=== PATIENT | female | born 1995 | race Two or more races ===

== ENCOUNTER 2016-08-14 01:34 | Emergency (ER) | payer OTHER ==
--- NOTE | ~2016-08-14 | ER ---
PATIENT'S NAME: MELODY EAGLE [facility] AGE: 20 Y [address] ROOM: [place] [address] LOCATION: [facility] ADMIT DATE: 08/14/2016 ER/Outpatient Report DISCHARGE DATE: 08/14/2016 FAMILY PHYSICIAN: Rommel Ng MD ATTENDING PHYSICIAN: Vipul Sal CHIEF COMPLAINT: Abdominal pain. HISTORY OF PRESENT ILLNESS: The patient states that throughout the day, she has had worsening of her right upper abdominal pain. She has had similar presentations in the past. She has not really taken anything to try to make this better. She has had some nausea and vomiting along with this and possibly some diarrhea. This particular issue has been going on for several days up to a week, but has gotten significantly worse since night. The pain is definitely worse after eating. She does have a history of abdominal surgery with a gastric sleeve. She denies any other acute findings. PAST MEDICAL HISTORY: Documented on the record and reviewed by me. SOCIAL HISTORY: Documented on the record and reviewed by me. MEDICATIONS: Documented on the record and reviewed by me. ALLERGIES: DOCUMENTED ON THE RECORD AND REVIEWED BY ME. REVIEW OF SYSTEMS: All systems reviewed and negative except as noted in the HPI. PHYSICAL EXAMINATION: VITAL SIGNS: Blood pressure 122/78, pulse 117, respiratory rate is 16, temperature is 98.5, and SpO2 is 93% on room air. Pain is rated at 8/10. GENERAL: An age appropriate female, laughing, and resting comfortably on the exam table. NEUROLOGIC: Awake and alert. GCS 15. No focal deficits. No asymmetry on exam. HEENT: Normocephalic and atraumatic. Eyes are PERRL. Oropharynx is clear. NECK: Supple. Trachea is midline. CHEST: Heart has regular rate and rhythm with borderline tachycardia. The lungs are clear to auscultation bilaterally with no rhonchi, wheezes, or PATIENT'S NAME: MELODY EAGLE [facility] AGE: 20 Y [address] ROOM: [place] [address] LOCATION: [facility] ADMIT DATE: 08/14/2016 ER/Outpatient Report DISCHARGE DATE: 08/14/2016 FAMILY PHYSICIAN: Rommel Ng MD ATTENDING PHYSICIAN: Vipul Sal. ABDOMEN: The abdominal exam is difficult secondary to the patient's body habitus. Abdomen is obese. Unclear bowel sounds. No definite Kyle sign. She has some tenderness in the right upper quadrant. No masses are appreciated on exam. BACK: Nontender to palpation. No CVA tenderness. EXTREMITIES: Warm and well perfused. No obvious abnormalities. SKIN: Warm, dry, and intact with no rashes. LABORATORY DATA AND X-RAYS: Right upper quadrant ultrasound is reported to be normal. Labs are notable for WBC's of 11.9, hemoglobin 12.5, and platelets of 426. INR is 1.0. CMS: Sodium 142, potassium 3.7, chloride is 108, BUN is 9, and creatinine 0.6. GFR is greater than 60. LFTs are all within appropriate range. Amylase and lipase 52 and 161 respectively. GGT is 78. CRP is minimally elevated at 1.33. Serum HCG is below threshold. Serum lactate is 1.2. Procalcitonin 0.26. IMPRESSION: Abdominal pain, not otherwise specified. EMERGENCY DEPARTMENT COURSE: The patient was seen and evaluated as above. She was given Zofran and morphine several times for pain. She did have marked improvement in her pain at that time. There is no evidence of hepatobiliary inflammation. I elected not to CT scan her as her abdominal exam is benign and definitely not worsening. Her labs are not consistent with major surgical cause. I am recommending follow up with her primary care provider as needed. All questions were answered. The patient was discharged in stable condition with prescriptions for Zofran and Lortab. MD DENVER JO/reese /[id number] d: 08/14/162145 t: 08/25/16825, OUTPATIENT REPORT
[2016-08-14 02:27] LABS: BASOPHIL % 0.3 %; EOSINOPHIL # 0.1 K/uL (0.0-0.5); EOSINOPHIL % 0.9 %; HEMATOCRIT 39.9 % (33.0-46.0); HEMOGLOBIN 12.5 g/dL (11.0-15.0); IMMATURE GRANULOCYTE % 0.3 %; LYMPHOCYTE # 3.2 K/uL (0.8-4.0); LYMPHOCYTE % 27.2 %; MCH 22.8 pg (27.0-34.0); MCHC 31.3 gm/dL (32.0-36.5); MCV 72.8 fl (83.0-98.0); MONOCYTE # 0.8 K/uL (0.0-1.0); MONOCYTE % 6.6 %; MPV 8.9 fl (9.4-12.4); NEUTROPHIL # (ANC) 7.7 K/uL (1.8-7.8); NEUTROPHIL % 64.7 %; NRBC % 0 /100WBC (0-0.00); PLATELET COUNT 426 K/uL (150-450); RBC 5.48 M/uL (3.50-5.00); RDW-CV 18.5 % (11.9-14.6); WBC 11.9 K/uL (4.0-11.0)
[2016-08-14 02:35] LABS: PTT 29 SECONDS (25-32)
[2016-08-14 02:46] LABS: ALBUMIN 3.9 gm/dL (3.5-5.0); ALK PHOS 83 IU/L (33-138); ALT 44 IU/L (12-78); ANION GAP 15.7 (10.0-19.0); AST 24 IU/L (10-40); BLOOD UREA NITROGEN 9 mg/dL (6-24); CALCIUM 9.1 mg/dL (8.5-10.5); CHLORIDE 108 mMol/L (96-110); CO2 22 mMol/L (22-32); CREATININE 0.6 mg/dL (0.5-1.1); ESTIMATED GFR (MDRD EQUATION) > 60; POTASSIUM 3.7 mMol/L (3.7-5.1); SODIUM 142 mMol/L (135-145); TOTAL BILIRUBIN 0.4 mg/dL (0.0-1.5); TOTAL PROTEIN 7.4 g/dL (6.0-8.4)
[2016-09-17] MEDS ORDERED: ZOFRAN4 MG PO (15:02)
[2016-09-17] MEDS ORDERED: LAMICTAL200 MG PO (15:02)
[2016-09-17] MEDS ORDERED: PROZAC40 MG PO (15:02)
[2016-09-17] MEDS ORDERED: TAB-A-VITE1 EACH PO (15:03)
[2016-09-17] MEDS ORDERED: NORCO 10-325 T1 EACH PO (15:03)
[2016-09-17] MEDS ORDERED: PROTONIX40 MG PO (15:03)
[2016-09-17] MEDS ORDERED: ASCORBIC ACID500 MG PO (15:03)
[2016-09-17] MEDS ORDERED: TYLENOL EXTRA500 MG PO (15:04)
[2016-09-21] MEDS ORDERED: ZOFRAN4 MG PO ×2 (13:29→13:30)
[2016-09-21] MEDS ORDERED: NORCO 10-325 T1 EACH PO (13:31)
[2016-12-24] MEDS ORDERED: PRILOSEC20 MG PO (13:43)
[2016-12-28] MEDS ORDERED: ZANAFLEX4 MG PO (09:14)
[2016-12-28] MEDS ORDERED: NYSTATIN100000 UNI PO (11:26)
== END 2016-08-14 05:53 | disposition disaster alternative care site (69) ==
LOC: GMED 01:34
PROVIDERS: Emergency Medicine
DX: R10.11 Right upper quadrant pain (principal); E66.9 Obesity, unspecified; Z98.890 Other specified postprocedural states; Z88.8 Allergy status to other drugs, medicaments and biological substances; Z79.899 Other long term (current) drug therapy
CPT/HCPCS: J2270; J2405; J7030

== ENCOUNTER → 2016-09-21 | Day surgery (SDC) | payer OTHER ==
[~2016-09-21] VITALS: Ht 172.7 cm; Wt 145.0 kg
[~2016-09-21] MED LIST: ADVIL200 MG PO; AMBIEN10 MG PO; ASCORBIC ACID500 MG PO; BACTRIM DS1 TAB PO; CLARITIN10 MG PO; DICLOFENAC SOD100 G1 TOP; FEOSOL325 MG PO; FLAGYL500 MG PO; FLONASE 50 MCG/16 GM NOSE; LAMICTAL200 MG PO; LIORESAL10 MG PO; NORCO 10-325 T1 EACH PO; NYSTATIN100000 UNI PO; PERCOCET 5-3251 EACH PO; PHENERGAN25 M1 PO; PRILOSEC20 MG PO; PROTONIX40 MG PO; PROZAC40 MG PO; TAB-A-VITE1 EACH PO; TUMS REGULAR ST1 TAB PO; TYLENOL EXTRA500 MG PO; ULTRAM50 MG PO; VALIUM5 MG PO; XANAX1 MG PO; ZANAFLEX4 MG PO; ZOFRAN4 MG PO
--- NOTE | ~2016-09-21 | OR ---
PATIENT'S NAME: MELODY EAGLE [facility] AGE: 20 Y [address] ROOM: [place] [address] [place] [facility] [place]: 09/21/2016 OR/Procedure Report DISCHARGE DATE: FAMILY PHYSICIAN: PHYSICIAN, UNKNOWN ATTENDING PHYSICIAN: Scott Hewitt SURGEON: Scott Hewitt MD COMMUNICATION ANALYST: Genevieve Ha PA-C. DATE OF PROCEDURE: 09/21/2016 PREOPERATIVE DIAGNOSES: Right upper quadrant pain and nausea, with possible biliary dyskinesia. POSTOPERATIVE DIAGNOSES: Right upper quadrant pain and nausea, with possible biliary dyskinesia. PROCEDURE PERFORMED: Laparoscopic cholecystectomy. ANESTHESIA: General endotracheal. ESTIMATED BLOOD LOSS: 10 mL. SPECIMEN: Gallbladder. REASON FOR PROCEDURE: The patient is a 20-year-old female, who had a sleeve gastrectomy performed laparoscopically three years ago. She had done well other than having weight regain until about a month ago when she developed severe intermittent right upper quadrant pain with nausea, and getting steadily worse. She had undergone an extensive workup with upper endoscopy, CT scan, and ultrasound that were all unremarkable. A HIDA scan showed a borderline low ejection fraction, but did reproduce her pain symptoms. We discussed the risks and benefits of surgery, as well as the fact that there was no guarantee that this would fix her pain. We also [facility] to see if they had any other suggestions. FINDINGS: There were a few adhesions up to the neck of the gallbladder that were related to the previous surgery. Otherwise, everything was uneventful. The gallbladder was not visibly abnormal. The cystic duct was normal in size. PROCEDURE IN DETAIL: The patient was taken to the Operating Suite and placed in the supine position. After general endotracheal anesthesia was obtained, the abdomen was prepped with ChloraPrep and sterilely draped. Marcaine was infiltrated into the incision sites. A 2-cm transverse infraumbilical incision was made. The fascia was grasped and elevated, and a Veress needle was used to obtain pneumoperitoneum. Three PATIENT'S NAME: MELODY EAGLE [facility] AGE: 20 Y [address] ROOM: [place] [address] [place] [facility] [place]: 09/21/2016 OR/Procedure Report DISCHARGE DATE: FAMILY PHYSICIAN: PHYSICIAN, UNKNOWN ATTENDING PHYSICIAN: Scott Hewitt 5-mm subcostal trocars were all placed under direct visualization. The fundus of the gallbladder was grasped and elevated. A second grasper was placed on the infundibulum. There were some adhesions from the antrum and duodenum to the neck area. We carefully took these down with scissors. We then dissected through the neck area of the gallbladder. The cystic duct and cystic artery were stapled proximally and distally, and then divided with scissors. The gallbladder was then mobilized free of the liver bed with cautery. The patient had a considerable fatty liver, which made the operation more difficult. Once freed up, we were able to remove the gallbladder from the umbilicus. The right upper quadrant was inspected. There were no signs of bleeding or bile leak. The surgical clips were in place. The abdomen was scanned. No other obvious abnormalities were seen. POST-PROCEDURE PLAN: The patient will be discharged home when awake and alert. Hopefully, we will see if this resolves her abdominal pain. If not, I would like to get an upper GI barium study just to document that there were no issues with her sleeve that perhaps the EGD would not expose. If that is normal, then we may have to consider a referral to the Medical Center to see if have they any other suggestions. SCOTT HEWITT MD JTM/modl /[id number] d: 09/22/16 2346 t: 09/23/16 1547, OPERATIVE SUMMARY
[2016-09-21 10:17] LABS: BASOPHIL % 0.3 %; EOSINOPHIL # 0.1 K/uL (0.0-0.5); HEMATOCRIT 40.4 % (33.0-46.0); HEMOGLOBIN 12.9 g/dL (11.0-15.0); IMMATURE GRANULOCYTE % 0.3 %; LYMPHOCYTE # 2.7 K/uL (0.8-4.0); LYMPHOCYTE % 24.1 %; MCH 23.5 pg (27.0-34.0); MCHC 31.9 gm/dL (32.0-36.5); MCV 73.6 fl (83.0-98.0); MONOCYTE # 0.7 K/uL (0.0-1.0); MONOCYTE % 6.1 %; NEUTROPHIL # (ANC) 7.6 K/uL (1.8-7.8); NEUTROPHIL % 68.2 %; NRBC % 0 /100WBC (0-0.00); PLATELET COUNT 405 K/uL (150-450); RBC 5.49 M/uL (3.50-5.00); WBC 11.2 K/uL (4.0-11.0)
[2016-09-21 10:18] LABS: RDW-CV 15.8 % (11.9-14.6)
[2016-09-21 10:34] LABS: ALK PHOS 80 IU/L (33-138); ALT 36 IU/L (12-78); ANION GAP 13.6 (10.0-19.0); AST 17 IU/L (10-40); BLOOD UREA NITROGEN 10 mg/dL (6-24); CALCIUM 8.9 mg/dL (8.5-10.5); CHLORIDE 109 mMol/L (96-110); CO2 23 mMol/L (22-32); CREATININE 0.7 mg/dL (0.5-1.1); ESTIMATED GFR (MDRD EQUATION) > 60; POTASSIUM 3.6 mMol/L (3.7-5.1); SODIUM 142 mMol/L (135-145); TOTAL PROTEIN 7.8 g/dL (6.0-8.4)
[2016-09-21 10:35] LABS: TOTAL BILIRUBIN 0.6 mg/dL (0.0-1.5)
== END | disposition disaster alternative care site (69) ==
LOC: GPOC 09-17 16:00 → GSDC 07:00
PROVIDERS: Surgery
PROC: 0FT44ZZ Resection of Gallbladder, Percutaneous Endoscopic Approach (ICD-10-PCS; principal; 2016-09-21)
DX: K81.1 Chronic cholecystitis (principal); K82.8 Other specified diseases of gallbladder; K21.9 Gastro-esophageal reflux disease without esophagitis; F41.9 Anxiety disorder, unspecified; J45.909 Unspecified asthma, uncomplicated; F32.9 Major depressive disorder, single episode, unspecified; E66.01 Morbid (severe) obesity due to excess calories; Z90.3 Acquired absence of stomach [part of]; Z98.890 Other specified postprocedural states
CPT/HCPCS: J0694; J1100; J2250; J2405; J3010; J7120

== ENCOUNTER 2016-10-05 11:00 | Observation (INO) | payer OTHER ==
[~2016-10-05] VITALS: Ht 172.7 cm; Wt 143.1 kg
--- NOTE | ~2016-10-05 | DS ---
PATIENT'S NAME: ISAIAH EAGLE [facility] AGE: 20 Y [address] ROOM: [address] [place], [place] [address] LOCATION: [facility] [place] ADMIT DATE: 10/05/2016 Discharge Summary DISCHARGE DATE: FAMILY PHYSICIAN: Rommel Ng MD ATTENDING PHYSICIAN: Rommel Ng FINAL DIAGNOSES: 1. C diff colitis. 2. Nausea, vomiting, and diarrhea. 3. Back pain, acute on chronic. HOSPITAL COURSE: Isaiah was admitted for diarrhea, nausea, and vomiting. She recently had surgery and had her gallbladder removed laparoscopically. She came to my office on the day of admission, complaining of the above. She was admitted to the hospital. Given IV fluid and her stool culture came back the night of admission showing Clostridium difficile. She was placed on oral Flagyl at that time and I was notified. She is tolerating that well this morning the day of dismissal. She is dismissed to home today on diet as tolerated, activity as tolerated. The medication list show including, Flagyl 500 t.i.d. #30 and some [place] for her back 325. She was seen back in office in a week. She understands normal precautions. MD ILYA LEW/modl /[id number] d: 10/06/16 1206 t: 10/10/16 1441, DISCHARGE SUMMARY
--- NOTE | ~2016-10-05 | CON ---
PATIENT'S NAME: MELODY EAGLE [facility] AGE: 20 Y [address] ROOM: [id number] [place], [place] [address] LOCATION: [facility] [place] ADMIT DATE: 10/05/2016 Consultation DISCHARGE DATE: FAMILY PHYSICIAN: FRANCOIS NG MD ATTENDING PHYSICIAN: FRANCOIS NG DATE OF CONSULTATION: 10/05/2016 REFERRING PHYSICIAN: Francois Ng MD REASON FOR CONSULTATION: Nausea, vomiting, diarrhea. HISTORY OF PRESENT ILLNESS: This is a very pleasant 20-year-old female, who was admitted with continual nausea, vomiting, and diarrhea. The patient states that in December 2015, she began having significant nausea, vomiting, and diarrhea with abdominal cramping. At that time, she thought she just had "bug." This continued off and on, then slightly relieved. In May, her symptoms returned and intensified. In June 2016, she did have shingles break out and was placed on vancomycin at that time. She states since March, she has lost approximately 30 pounds. She does have history of hemorrhoids with some bright red blood in her stool, though she describes that it is mixed in the stool instead of just on the toilet paper. She complains of night awakening symptoms with 2 to 3 bowel movements per night. On average, she states that she has 8+ bowel movements per day. She denies any previous stool workup, though stool is pending that was obtained on admission. She states that she has been on numerous antibiotics, omeprazole and Zofran for all these symptoms with no definitive relief of symptoms. She does complain of increased "heat sensitivity." She does complain of intermittent fever. Over the past few months, she experienced a localized right upper quadrant pain. She did undergo lap pierre performed by Dr. Mckinnon approximately 2 weeks ago. She states that the localized right upper quadrant pain has relieved, though her symptoms continued to intensify. She does also have a significant history for sleeve gastrectomy completed in 2012 as well. She presented to her primary care for her 2-week followup status post lap pierre. She was then admitted due to the patient's continual complaints of problems. PAST MEDICAL HISTORY: Degenerative back disease, history of depression. PAST SURGICAL HISTORY: Lap pierre, sleep gastrectomy in 2012, tonsils and adenoids, right ankle repair, L5-S1 diskectomy and fusion. She denies any history of upper endoscopy or colonoscopy. PATIENT'S NAME: MELODY EAGLE [facility] AGE: 20 Y [address] ROOM: [id number] [place], [place] [address] LOCATION: [facility] [place] ADMIT DATE: 10/05/2016 Consultation DISCHARGE DATE: FAMILY PHYSICIAN: FRANCOIS NG MD ATTENDING PHYSICIAN: FRANCOIS NG SOCIAL HISTORY: She denies any alcohol use, tobacco use, or illicit drug use. 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 FAMILY HISTORY: The patient's paternal grandfather had myocardial infarction. The patient's maternal grandfather of "old age." She does state that her father had diverticulitis. She also has aunts with breast cancer. She denies any other gastrointestinal diseases including inflammatory bowel disease such as Crohn's or ulcerative colitis. ALLERGIES: NO KNOWN MEDICATION ALLERGIES. CURRENT MEDICATIONS: Please refer to the medication administration record. REVIEW OF SYSTEMS: A 10-point review of systems was completed. All were negative except for those identified in the history of present illness. PHYSICAL EXAMINATION: GENERAL: A very pleasant 20-year-old female, lying in bed, who appears to be in no acute distress. VITAL SIGNS: Temperature 98.4, pulse of 104, respirations of 18, blood pressure 129/87, and oxygen saturation is 96% on room air. SKIN: [place], warm, dry. No jaundice. HEENT: Head is normocephalic and atraumatic. Pupils are equal, round, and reactive to light. Sclerae are clear, nonicteric. Oral mucosa is pink and moist. No thyromegaly. NECK: Soft and supple. CARDIOVASCULAR: Regular, tachycardic. Normal S1, S2. RESPIRATORY: Respirations even and unlabored. LUNGS: Clear to auscultation. ABDOMEN: Soft, round, obese. Tender in the bilateral lower quadrants. No rebound, rigidity, or guarding noted. MUSCULOSKELETAL: No muscle weakness or atrophy. EXTREMITIES: No clubbing, cyanosis, or edema. NEUROLOGICAL: Grossly nonfocal. LABORATORIES AND DIAGNOSTICS: Laboratory obtained on admission to [facility] included a white blood cell count at 10.1, hemoglobin of 12.2, hematocrit of 39.0, platelet of 352. Chemistry panel includes a glucose of 107, BUN of 8, creatinine 0.6, sodium of 141, potassium of 3.9, chloride of 108, CO2 of 23, and albumin of PATIENT'S NAME: MELODY EAGLE [facility] AGE: 20 Y [address] ROOM: [place] [address] LOCATION: [facility] [place] ADMIT DATE: 10/05/2016 Consultation DISCHARGE DATE: FAMILY PHYSICIAN: FRANCOIS NG MD ATTENDING PHYSICIAN: FRANCOIS NG 3.8. AST of 19, ALT of 28, alkaline phosphatase of 78, total bilirubin 0.5, magnesium of 2.2. ESR 19, free T4 of 1.0, TSH of 3.090. She did have a chest x-ray on admission secondary to tachycardia showing normal study. ASSESSMENT AND PLAN: Again, this is a very pleasant 20-year-old female, who has had a long-standing history of nausea, vomiting, and diarrhea since December 2015, with no definitive identification. At this time, we will await for the patient's stool studies to rule out any infectious and inflammatory process. The patient will also undergo a CT abdomen and pelvis to identify any other acute inflammation and/or colitis. The patient may need to undergo flexible sigmoidoscopy versus a colonoscopy for further definitive evaluation. Further recommendations to be given after receipt of stool studies and diagnostic workup. Thank you for this consult. TUYET HERRERA APRN FOR RICA RIVERA MD MMF/modl /[id number] d: 10/05/162232 t: 10/08/16 1331, CONSULTATION REPORT
[~2016-10-05 11:00] MED LIST changes: -ADVIL200 MG PO; -AMBIEN10 MG PO; -BACTRIM DS1 TAB PO; -CLARITIN10 MG PO; -DICLOFENAC SOD100 G1 TOP; -FEOSOL325 MG PO; -FLAGYL500 MG PO; -FLONASE 50 MCG/16 GM NOSE; -LIORESAL10 MG PO; -NYSTATIN100000 UNI PO; -PERCOCET 5-3251 EACH PO; -PHENERGAN25 M1 PO; -PRILOSEC20 MG PO; -TUMS REGULAR ST1 TAB PO; -ULTRAM50 MG PO; -VALIUM5 MG PO; -XANAX1 MG PO; -ZANAFLEX4 MG PO
[2016-10-05 13:24] LABS: BASOPHIL # 0.1 K/uL (0.0-0.2); BASOPHIL % 0.6 %; EOSINOPHIL # 0.3 K/uL (0.0-0.5); EOSINOPHIL % 3.3 %; HEMOGLOBIN 12.2 g/dL (11.0-15.0); IMMATURE GRANULOCYTE % 0.3 %; LYMPHOCYTE # 2.2 K/uL (0.8-4.0); MCH 23.1 pg (27.0-34.0); MCHC 31.3 gm/dL (32.0-36.5); MONOCYTE # 0.6 K/uL (0.0-1.0); MONOCYTE % 6.2 %; MPV 8.8 fl (9.4-12.4); NEUTROPHIL # (ANC) 6.8 K/uL (1.8-7.8); NEUTROPHIL % 67.6 %; NRBC % 0 /100WBC (0-0.00); PLATELET COUNT 352 K/uL (150-450); RBC 5.27 M/uL (3.50-5.00); WBC 10.1 K/uL (4.0-11.0)
[2016-10-05 13:44] LABS: ALBUMIN 3.8 gm/dL (3.5-5.0); ALK PHOS 78 IU/L (33-138); ALT 28 IU/L (12-78); ANION GAP 13.9 (10.0-19.0); AST 19 IU/L (10-40); BLOOD UREA NITROGEN 8 mg/dL (6-24); CALCIUM 8.9 mg/dL (8.5-10.5); CHLORIDE 108 mMol/L (96-110); CO2 23 mMol/L (22-32); CREATININE 0.6 mg/dL (0.5-1.1); ESTIMATED GFR (MDRD EQUATION) > 60; MAGNESIUM 2.2 mg/dL (1.8-2.6); POTASSIUM 3.9 mMol/L (3.7-5.1); SODIUM 141 mMol/L (135-145); TOTAL PROTEIN 7.3 g/dL (6.0-8.4)
[2016-10-05 13:50] LABS: TOTAL BILIRUBIN 0.5 mg/dL (0.0-1.5)
[2016-10-05] MEDS ORDERED: PHENERGAN25 M1 PO (14:14)
[2016-10-05] MEDS ORDERED: VALIUM5 MG PO (14:14)
[2016-10-05] MEDS ORDERED: XANAX1 MG PO (14:15)
[2016-10-05] MEDS ORDERED: ULTRAM50 MG PO (14:15)
[2016-10-05] MEDS ORDERED: AMBIEN10 MG PO (14:16)
[2016-10-05] MEDS ORDERED: FLONASE 50 MCG/16 GM NOSE (14:16)
[2016-10-05] MEDS ORDERED: CLARITIN10 MG PO (14:17)
[2016-10-06] MEDS ORDERED: FLAGYL500 MG PO (08:13)
[2016-12-24] MEDS ORDERED: PRILOSEC20 MG PO (13:43)
[2016-12-28] MEDS ORDERED: ZANAFLEX4 MG PO (09:14)
[2016-12-28] MEDS ORDERED: NYSTATIN100000 UNI PO (11:26)
== END 2016-10-06 14:52 | disposition disaster alternative care site (69) ==
LOC: GMSU 11:29
PROVIDERS: ADMIT Family Medicine
DX: A04.7 Enterocolitis due to Clostridium difficile (principal); G43.A0 Cyclical vomiting, in migraine, not intractable; M54.40 Lumbago with sciatica, unspecified side; R11.2 Nausea with vomiting, unspecified; F41.9 Anxiety disorder, unspecified; F32.9 Major depressive disorder, single episode, unspecified; Z98.1 Arthrodesis status; Z98.84 Bariatric surgery status; Z90.49 Acquired absence of other specified parts of digestive tract; Z98.890 Other specified postprocedural states
CPT/HCPCS: G0378; G0379; J7030; Q9967

== ENCOUNTER 2016-11-02 12:10 | Emergency (ER) | payer OTHER ==
--- NOTE | ~2016-11-02 | ER ---
PATIENT'S NAME: MELODY EAGLE [facility] AGE: 20 Y [address] ROOM: [place], [place] [address] LOCATION: ED ADMIT DATE: 11/02/2016 ER/Outpatient Report DISCHARGE DATE: 11/02/2016 FAMILY PHYSICIAN: Kerrie Lawler ATTENDING PHYSICIAN: Josie Colon Time of Arrival: 1210 hours. Time of Evaluation: 1231 hours. IDENTIFICATION: A 20-year-old female. CHIEF COMPLAINT: Neck pain. HISTORY OF PRESENT ILLNESS: The patient states 1 month ago, she was reaching for her phone up behind her, felt a pop in her neck and she has had constant neck pain, worse with flexion and extension, now associated with headache, dizziness and lightheaded. The patient has been on hydrocodone and baclofen, which has helped some, but she has not taken any today. She has been trying to take Tylenol or Aleve. Then, she proceeds to tell me that she needs to have a "rheumatoid panel" done that "they" said to have this done. When asked about who was making that recommendation, she said Dr. Winkler that she just came from his office where she is currently seeing him for low back pain. She does state that she discussed with him her neck pain. The patient when asked about what Dr. Winkler was doing for a back pain. It sounds like she is being scheduled for an MRI. She said that he would not see her for her neck pain that she had to make a separate visit because she was there for her back pain. The patient currently goes to school in [place]. 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 Her primary care physician is in [place] and she has not seen her primary care physician for this pain. The patient has no numbness, tingling or weakness. No fever or chills. PAST MEDICAL HISTORY: ALLERGIES: NO KNOWN DRUG ALLERGIES. CURRENT MEDICATIONS: 1. Prozac 40 mg daily. 2. Lamotrigine 200 mg daily. 3. Flagyl 500 mg t.i.d. 4. Baclofen 10 mg p.r.n. 5. Hydrocodone 10/325 p.r.n., she is out of both of those medications. PATIENT'S NAME: MELODY EAGLE [facility] AGE: 20 Y [address] ROOM: [place], [place] [address] LOCATION: ED ADMIT DATE: 11/02/2016 ER/Outpatient Report DISCHARGE DATE: 11/02/2016 FAMILY PHYSICIAN: Kerrie Lawler ATTENDING PHYSICIAN: Josie Colon 6. Tylenol p.r.n. 7. Aleve p.r.n. 8. Meclizine p.r.n. MEDICAL PROBLEMS: 1. Recent hospitalization for C. difficile colitis, 10/05/2016, currently on Flagyl. 2. Chronic back pain. 3. Anxiety. 4. Depression. PRIOR SURGERIES: 1. L5-S1 diskectomy and fusion per Dr. Winkler on September of 2014. 2. Right ankle surgery. 3. Gastric sleeve. 4. Cholecystectomy 09/21/2016. 5. Tonsillectomy and adenoidectomy. SOCIAL HISTORY: The patient is in the process of moving back to [place]. She currently is attending nursing school in [place]. Tobacco use, denies. Alcohol use, denies. Drug use, denies. REVIEW OF SYSTEMS: All systems reviewed and negative other than what is noted in the HPI. The patient states she is currently having her last menstrual period. PHYSICAL EXAMINATION: VITAL SIGNS: Height 5 feet 8 inches and weight 146.8 kg. Blood pressure 127/74, pulse 97, respirations 18, temperature 98, and saturations 98%. GENERAL: A 20-year-old female, in moderate distress, 8/10 pain. HEENT: Head: Normocephalic, atraumatic. Ears: TMs translucent both ears. Eyes: Pupils equal and reactive to light and accommodation. Extraocular movements intact. Nose: Mucosa pink. No lesions or drainage. Mouth: No lesions. Pharynx benign. NECK: Supple. No lymphadenopathy. No nuchal rigidity. She is tender to palpation posteriorly paraspinal muscles. No palpable deformities. No tenderness to palpation in midline. She has decreased range of motion with flexion and extension secondary to pain. She has normal range of motion with rotation. No tenderness to palpation of her thoracic or lumbar spine. LUNGS: Clear to auscultation. Breath sounds are equal. HEART: Regular rate and rhythm. No murmur, rub, or gallop. ABDOMEN: Soft, nondistended, nontender. SKIN: [place], warm, and dry. No lesions or rashes noted. NEURO: The patient is alert and oriented x4. Cranial nerves 2 through 12 PATIENT'S NAME: MELODY EAGLE [facility] AGE: 20 Y [address] ROOM: [place] [address] LOCATION: [facility] ADMIT DATE: 11/02/2016 ER/Outpatient Report DISCHARGE DATE: 11/02/2016 FAMILY PHYSICIAN: Kerrie Lawler ATTENDING PHYSICIAN: Josie Colon grossly intact. Motor strength 5/5 throughout. Sensation is intact to light touch. No lower extremity edema. IMAGING STUDIES: The patient would like imaging of her spine. We did a CAT scan which was normal per Radiology. LABORATORY DATA: Hemoglobin 12.3, hematocrit 40.1, platelets 456, white count 11.1 with a normal differential. Sedimentation rate normal at 17, CRP 0.78. Chemistry panel is unremarkable. HCG less than 1. TSH 2.620. IMPRESSION: Chronic neck pain. PLAN: I had a long discussion with the patient about followup with her primary care physician regarding any necessary "rheumatoid" panel. We have done a sedimentation rate and a CRP which are normal here. I recommended Tylenol or Aleve for pain. I discussed giving her either some ibuprofen here or Toradol shot. She told me she could not have Toradol and that she is not supposed to take ibuprofen because of her "stomach." Toradol, she tells me she cannot have because she is on Prozac. Although, she tolerates Aleve fine. Since she is out of [place], we gave her 1 [place] tablet here 5/325, her pain improved from an 8 to a 1. She requested a refill of her [place]. I agreed that I would give her a few [place], but that she needed to follow up with her primary care physician. She specifically requested 10/325 one every 4 hours. I told her that we would only give her a very short-term of pain medication from the emergency room that would require her primary care physician, so she was given [place] 10/325 one p.o. q.6 hours p.r.n. pain dispensed #15 with 0 refills. Ice or heat. No heavy lifting and follow up with her primary care physician in 1- week. Follow up sooner if any problems or concerns. The patient understands and agrees, and all questions have been answered. When I did talk with her about following up with the primary care physician for any rheumatoid testing, she got tearful and said that nobody really believes the pain she is having. Again, I reiterated the importance of following up with her primary care physician especially in light of the chronic nature of some of her problems. The patient does seem to understand and voices on understanding. JOSIE COLON MD CAR/modl PATIENT'S NAME: MELODY EAGLE [facility] AGE: 20 Y [address] ROOM: [place] [address] LOCATION: [facility] ADMIT DATE: 11/02/2016 ER/Outpatient Report DISCHARGE DATE: 11/02/2016 FAMILY PHYSICIAN: Kerrie Lawler ATTENDING PHYSICIAN: Josie Colon /[id number] d: 11/03/165 t: 11/09/16 1013, OUTPATIENT REPORT
[~2016-11-02 12:10] MED LIST changes: +AMBIEN10 MG PO; +CLARITIN10 MG PO; +FLAGYL500 MG PO; +FLONASE 50 MCG/16 GM NOSE; +PHENERGAN25 M1 PO; +ULTRAM50 MG PO; +VALIUM5 MG PO; +XANAX1 MG PO
[2016-11-02 13:28] LABS: BASOPHIL % 0.4 %; EOSINOPHIL # 0.2 K/uL (0.0-0.5); EOSINOPHIL % 2.2 %; HEMATOCRIT 40.1 % (33.0-46.0); HEMOGLOBIN 12.3 g/dL (11.0-15.0); IMMATURE GRANULOCYTE % 0.3 %; LYMPHOCYTE % 26.8 %; MCH 22.7 pg (27.0-34.0); MCHC 30.7 gm/dL (32.0-36.5); MCV 73.8 fl (83.0-98.0); MONOCYTE # 0.8 K/uL (0.0-1.0); MPV 9.1 fl (9.4-12.4); NEUTROPHIL % 63.3 %; NRBC % 0 /100WBC (0-0.00); RBC 5.43 M/uL (3.50-5.00); RDW-CV 15.4 % (11.9-14.6); WBC 11.1 K/uL (4.0-11.0)
[2016-11-02 13:29] LABS: PLATELET COUNT 456 K/uL (150-450)
[2016-11-02 13:46] LABS: ALBUMIN 3.9 gm/dL (3.5-5.0); ALK PHOS 88 IU/L (33-138); ALT 32 IU/L (12-78); ANION GAP 11.5 (10.0-19.0); AST 25 IU/L (10-40); BLOOD UREA NITROGEN 10 mg/dL (6-24); CALCIUM 8.8 mg/dL (8.5-10.5); CHLORIDE 108 mMol/L (96-110); CO2 24 mMol/L (22-32); CREATININE 0.6 mg/dL (0.5-1.1); ESTIMATED GFR (MDRD EQUATION) > 60; POTASSIUM 3.5 mMol/L (3.7-5.1); SODIUM 140 mMol/L (135-145); TOTAL BILIRUBIN 0.6 mg/dL (0.0-1.5); TOTAL PROTEIN 7.8 g/dL (6.0-8.4)
[2016-12-24] MEDS ORDERED: PRILOSEC20 MG PO (13:43)
[2016-12-28] MEDS ORDERED: ZANAFLEX4 MG PO (09:14)
[2016-12-28] MEDS ORDERED: NYSTATIN100000 UNI PO (11:26)
== END 2016-11-02 14:46 | disposition disaster alternative care site (69) ==
LOC: GMED 12:10
PROVIDERS: Family Medicine
DX: M54.2 Cervicalgia (principal); G89.29 Other chronic pain; A04.7 Enterocolitis due to Clostridium difficile; F41.9 Anxiety disorder, unspecified; F32.9 Major depressive disorder, single episode, unspecified; Z79.899 Other long term (current) drug therapy; Z90.49 Acquired absence of other specified parts of digestive tract; Z98.890 Other specified postprocedural states

== ENCOUNTER → 2016-11-11 | Outpatient (CLI) | payer OTHER ==
[~2016-11-11] MED LIST changes: +ADVIL200 MG PO; +BACTRIM DS1 TAB PO; +DICLOFENAC SOD100 G1 TOP; +FEOSOL325 MG PO; +LIORESAL10 MG PO; +NYSTATIN100000 UNI PO; +PERCOCET 5-3251 EACH PO; +PRILOSEC20 MG PO; +TUMS REGULAR ST1 TAB PO; +ZANAFLEX4 MG PO
== END | disposition disaster alternative care site (69) ==
LOC: GRAD 09:48
DX: M54.16 Radiculopathy, lumbar region (principal); M47.894 Other spondylosis, thoracic region; Z98.890 Other specified postprocedural states

== ENCOUNTER 2016-11-24 10:30 | Observation (INO) | payer OTHER ==
[~2016-11-24] VITALS: Ht 172.7 cm; Wt 143.7 kg
--- NOTE | ~2016-11-24 | CON ---
PATIENT'S NAME: MELODY EAGLE [facility] AGE: 20 Y [address] ROOM: [id number] [place], [place] [address] LOCATION: [facility] [place] ADMIT DATE: 11/24/2016 Consultation DISCHARGE DATE: FAMILY PHYSICIAN: FRANCOIS NG MD ATTENDING PHYSICIAN: FRANCOIS NG DATE OF CONSULTATION: 11/25/2016 REFERRING PHYSICIAN: DAVID FUENTES MD REFERRING PROVIDER: Dr. Francois Ng. REASON FOR CONSULTATION: Diarrhea, history of recurring C. difficile. HISTORY OF PRESENT ILLNESS: This is a very pleasant, 20-year-old female with a history of chronic diarrhea. The patient was seen at a recent hospitalization in September 2016 and was found to have C. diff. She states at that time she was having multiple loose stools for a number of months. The patient stated that she was treated and did well for a month following treatment. Approximately 3 weeks ago, she began experiencing loose stools in upwards of 6 to 7 per day that was associated with nausea, small vomiting, as well as increasing abdominal cramping. She was evaluated at a facility in [place] where she states that C. diff was positive as well as questionable "E. coli." In discussion with the patient, she states that she was placed on "Bactrim" for the positive stool. These records are unavailable to me at this time, and we will request for these records to be reviewed. The patient denies any history of colonoscopy. She does report having an upper endoscopy by family practice in August 2016, though she is unsure of the details. She is also unsure of whether possible biopsy was taken. I discussed in depth with the patient that a full examination via scope would not be recommended at this time due to recent C. diff positive. She denies any acute chest pain or chest pressure. She does state that her stools are a little bit more formed this morning as well as the frequency of stools have lessened. The patient's weight has been stable. She denies any decrease in appetite, fever, or chills. PAST MEDICAL HISTORY: C. difficile X2 episodes with the first in September of 2016, second in October 2016; degenerative back disease; and history of depression. PAST SURGICAL HISTORY: History of laparoscopic cholecystectomy, sleeve gastrectomy in 2012, tonsils and adenoids, right ankle repair, and L5-S1 diskectomy and fusion. No history of upper endoscopy or colonoscopy. PATIENT'S NAME: MELODY EAGLE [facility] AGE: 20 Y [address] ROOM: [id number] [place], [place] [address] LOCATION: [facility] [place] ADMIT DATE: 11/24/2016 Consultation DISCHARGE DATE: FAMILY PHYSICIAN: FRANCOIS NG MD ATTENDING PHYSICIAN: FRANCOIS NG SOCIAL HISTORY: The patient recently moved to [place]. She denies any alcohol, tobacco, or illicit drug use. FAMILY HISTORY: Maternal grandfather had myocardial infarction. The patient's father has diverticulitis. She has an aunt with breast cancer. She denies any known inflammatory bowel disease. ALLERGIES: NO KNOWN MEDICATION ALLERGIES. CURRENT MEDICATIONS: Please refer to the medication administration record. REVIEW OF SYSTEMS: All-point review of systems was completed, all were negative except for those identified in the History of Present Illness. PHYSICAL EXAMINATION: GENERAL: A very pleasant, 20-year-old female who appears to be in no acute distress. VITAL SIGNS: Temperature 98.9, pulse of 87, respirations of 16, blood pressure 142/79, and oxygen saturation is 98% on room air. SKIN: [place], warm, and dry. No jaundice. HEENT: Head is normocephalic and atraumatic. Pupils are equal, round, and reactive to light. Sclerae are clear, nonicteric. Oral mucosa is pink and moist. No thyromegaly. NECK: Soft and supple. CARDIOVASCULAR: Regular. Normal S1 and S2. RESPIRATORY: Respirations even and unlabored. Lungs clear to auscultation. ABDOMEN: Soft, round, and obese. Mildly tender in the bilateral lower quadrants. No rebound, rigidity, or guarding noted. MUSCULOSKELETAL: No muscle weakness or atrophy. EXTREMITIES: No edema. NEUROLOGIC: Grossly nonfocal. LABORATORY AND DIAGNOSTIC DATA: Stool workup has been completed at [facility] showing negative for C. diff, O and P, as well as Shiga toxins. White blood cell count of 9.8, hemoglobin of 11.4, hematocrit of 37.3, and platelets of 358. Chemistry panel includes a glucose of 174, BUN of 8, creatinine 0.7, sodium 139, potassium of 3.7, chloride of 110, and CO2 of 20. Albumin of 3.4. Liver function tests are within normal limits with an AST of 17, ALT of 23, and alkaline phosphatase of 78. Total bilirubin 0.5. ESR was elevated on admission at 30. CRP was 0.78 and PATIENT'S NAME: MELODY EAGLE [facility] AGE: 20 Y [address] ROOM: [place] [address] LOCATION: [facility] ADMIT DATE: 11/24/2016 Consultation DISCHARGE DATE: FAMILY PHYSICIAN: FRANCOIS NG MD ATTENDING PHYSICIAN: FRANCOIS NG elevated. TSH at that time was 2.620. ASSESSMENT AND PLAN: Again, this is a very pleasant, 20-year-old female with a history of 2 bouts of Clostridium difficile with the first bout in September 2016. The patient was recently diagnosed, approximately 2 weeks ago, with Clostridium difficile as well as questionable Escherichia coli. The patient was placed on "Bactrim," per her statement. We will request for these records to be sent to us for review. The patient likely will need full examination including ruling out celiac disease as well as underlying colitis and/or inflammatory bowel disease after complete resolution of the infectious process currently. The patient currently is on vancomycin 250 mg every 6 hours p.o., and we will request further records to be sent to us for review. The patient verbalizes understanding. Further recommendations to be given after review of stool studies. Thank you for this consult. TUYET HERRERA APRN FOR DAVID FUENTES MD MMF/modl /[id number] d: 11/25/16 1205 t: 11/26/16 1031, CONSULTATION REPORT
--- NOTE | ~2016-11-24 | DS ---
[facility] 20 Y [address] ROOM: [address] [address] [place] [facility] [place]: 11/24/2016 Discharge Summary DISCHARGE DATE: FAMILY PHYSICIAN: Francois Ng MD ATTENDING PHYSICIAN: Francois Ng FINAL DIAGNOSES: 1. Nausea and vomiting, resolved, probably viral etiology. 2. Diarrhea, probably viral etiology; recent history of Clostridium difficile; cultures here for ova and parasites, Clostridium difficile, and sensitivity negative, ova and parasites negative. 3. Chronic depression, in remission. 4. Chronic anxiety, stable. 5. 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 6. Chronic low back pain. HOSPITAL COURSE: This patient was admitted to the hospital for persistent nausea, vomiting, diarrhea, and a remote history of having stool culture positive for C. diff in the last 2 weeks drawn in [place]. The cultures supposedly also showed E. coli, and the patient came to my office on the day of admission with persistent symptoms of nausea, vomiting, diarrhea, and she was on Bactrim. Because of her history, I put her in the hospital here and obtained cultures on her stool. Her stool cultures came back negative for O and P, negative for C. diff, and negative for culture and sensitivity. I requested Gastroenterology consultation, which was done. I have read their notes and dictation. The patient on the day of dismissal has improved. Her nausea and vomiting have resolved. She is afebrile. Her diarrhea has resolved, and she is aware of her stool studies being negative. Her sedimentation rate was up just slightly at 30. Otherwise, her CBC and chem panel were normal. DISCHARGE INSTRUCTIONS: She is dismissed to home on diet as tolerated, activity as tolerated, on the med list shown, but she goes out to hold her Bactrim and also hold vancomycin that she was given here orally. She will see me back in the office on Tuesday, and at the request of the director underwriter sales, in a couple of weeks, we will set her up for an upper GI endoscopy and colonoscopy per their recommendations. If before that time in 2 weeks she has problems with fever, chills, nausea, vomiting, or diarrhea, she is to be seen earlier. She PATIENT'S NAME: [facility] AGE: 20 Y [address] ROOM: [address] [address] [place] [facility] [place]: 11/24/2016 Discharge Summary DISCHARGE DATE: FAMILY PHYSICIAN: Francois Ng MD ATTENDING PHYSICIAN: Francois Ng understands. FRANCOIS NG MD [employer]NT/modl /[id number] d: 11/26/16919 t: 12/22/16 1721, DISCHARGE SUMMARY
[~2016-11-24 10:30] MED LIST changes: -ADVIL200 MG PO; -BACTRIM DS1 TAB PO; -DICLOFENAC SOD100 G1 TOP; -FEOSOL325 MG PO; -LIORESAL10 MG PO; -NYSTATIN100000 UNI PO; -PERCOCET 5-3251 EACH PO; -PRILOSEC20 MG PO; -TUMS REGULAR ST1 TAB PO; -ZANAFLEX4 MG PO
--- NOTE | 2016-11-24 11:52 | NUR ---
Pt is 20 y/o female admit for nausea,vomiting,dehydration,diarrhea for . Allergic to rocephin. Red bracelet on. Hx lower back problems, chronic nausea,vomiting,diarrhea,has had a gastric sleeve. Pt alert and oriented x3. Resides at home with family. States she is Cdiff positive but no records obtained yet to substantiate this. Placed in contact isolation.
[2016-11-24] MEDS ORDERED: ADVIL200 MG PO (12:00)
[2016-11-24] MEDS ORDERED: ASCORBIC ACID500 MG PO (12:00)
[2016-11-24] MEDS ORDERED: FEOSOL325 MG PO (12:01)
[2016-11-24] MEDS ORDERED: BACTRIM DS1 TAB PO (12:02)
[2016-11-24] MEDS ORDERED: PERCOCET 5-3251 EACH PO (12:03)
[2016-11-24] MEDS ORDERED: DICLOFENAC SOD100 G1 TOP (12:03)
[2016-11-24] MEDS ORDERED: TUMS REGULAR ST1 TAB PO (12:04)
[2016-11-24] MEDS ORDERED: LIORESAL10 MG PO (12:04)
[2016-11-24 16:03] LABS: HEMATOCRIT 37.3 % (33.0-46.0); HEMOGLOBIN 11.4 g/dL (11.0-15.0); MCH 22.1 pg (27.0-34.0); MCHC 30.6 gm/dL (32.0-36.5); MCV 72.4 fl (83.0-98.0); MPV 8.2 fl (9.4-12.4); RBC 5.15 M/uL (3.50-5.00); RDW-CV 15.6 % (11.9-14.6); WBC 9.8 K/uL (4.0-11.0)
[2016-11-24 16:04] LABS: PLATELET COUNT 358 K/uL (150-450)
[2016-11-24 16:20] LABS: ALBUMIN 3.4 gm/dL (3.5-5.0); ALK PHOS 78 IU/L (33-138); ALT 23 IU/L (12-78); ANION GAP 12.7 (10.0-19.0); AST 17 IU/L (10-40); BLOOD UREA NITROGEN 8 mg/dL (6-24); CALCIUM 8.6 mg/dL (8.5-10.5); CHLORIDE 110 mMol/L (96-110); CO2 20 mMol/L (22-32); CREATININE 0.7 mg/dL (0.5-1.1); ESTIMATED GFR (MDRD EQUATION) > 60; POTASSIUM 3.7 mMol/L (3.7-5.1); SODIUM 139 mMol/L (135-145); TOTAL BILIRUBIN 0.5 mg/dL (0.0-1.5); TOTAL PROTEIN 7.4 g/dL (6.0-8.4)
--- NOTE | 2016-11-24 16:26 | NUR ---
Significant Event: Patient admitted at [address] Ng office for c/o nausea, vomiting and diarrhea. Patient states having a "normal" BM today. Was dx with C diff 2 weeks ago and stated that she took the full course of antibiotics. Patient had a moderate, mushy, green BM and stool specimen sent to lab. C/o back discomfort and received [place] 1 tab at 1510 with partial relief. Patient in contact isolation until C diff results are back. Started on oral Vancomycin 250 mg WID. Up to the bathroom ad antonette. IV to her L) forearm with NS at 125 ml/hr. GI consult. Follow up:
[2016-11-24 17:07] LABS: ABSOLUTE NEUTROPHIL CT (ANC) 7.3 K/uL (1.8-7.8); BANDED NEUTROPHIL # 0.2 K/uL (0.0-0.1); BANDED NEUTROPHILS % 2 %; LYMPHOCYTE # 2.2 K/uL (0.8-4.0); LYMPHOCYTE % 16 %; MONOCYTE # 0.5 K/uL (0.0-1.0); SEGMENTED NEUTROPHIL # 7.1 K/uL (1.8-7.8); SEGMENTED NEUTROPHIL % 72 %
--- NOTE | 2016-11-25 02:24 | NUR ---
SIGNIFICANT EVENT: VSS on RA - slight tachycardia, 87 to 92. [place] x2, last at 0050. Baclofen x2, last at 2230. Motrin x1 at 2233. Valium x1 at 0050. Tums x2, last at 2311. CDiff, Giardia and Cryptosporidium are all negative. Independent in room. PIV to L) FA infusing NS. Regular diet. Pleasant and cooperative with cares.
--- NOTE | 2016-11-25 16:37 | NUR ---
Significant Event:VSS, pt reports pain in thoracic back and neck at times. [place] x 2 last dose at 1410, Valium 5mg at 1000, [place] 1410, IBU 800mg 1605. Rates pain 5-7/10. Ice packs x 2, to back, pt up ambulates in room/hallway. Xanax 1mg at 1130 for "anxiety". CSM to upper extremities WNL. Denies numbness/tingling. Continues on oral Vancomycin. Independent in room. NS 125ml per LFA IV. Voids, BM today Follow up:monitor
--- NOTE | 2016-11-26 05:37 | NUR ---
Significant Event: Follow up:PATIENT A/O X3 , COMPLAINED OF PAIN ALL NIGHT LONG, GAVE TWO NORCO'S, 1 MOTRIN, AND XANEX. ABLE TO VOID WITH GOOD OUTPUT,MEX4, EATS AND DRINKS WELL, V/S STABLE
--- NOTE | 2016-11-26 15:00 | NUR ---
DISCHARGE: Pt. was explained discharge instructions, educated on medications, c diff precautions, and self care for N/V. Verbalized understanding, no questions or concerns. Patient left with all belongings and prescriptions. Taken to front door by aide and driven home by mother.
[2016-12-24] MEDS ORDERED: PRILOSEC20 MG PO (13:43)
[2016-12-28] MEDS ORDERED: ZANAFLEX4 MG PO (09:14)
[2016-12-28] MEDS ORDERED: NYSTATIN100000 UNI PO (11:26)
== END 2016-11-26 14:30 | disposition disaster alternative care site (69) ==
LOC: GMSU 11:07
PROVIDERS: ADMIT Family Medicine
DX: R19.7 Diarrhea, unspecified (principal); F32.5 Major depressive disorder, single episode, in full remission; F41.9 Anxiety disorder, unspecified; E66.09 Other obesity due to excess calories; G89.29 Other chronic pain; M54.5 Low back pain; Z68.42 Body mass index [BMI] 45.0-49.9, adult; Z90.49 Acquired absence of other specified parts of digestive tract; Z98.890 Other specified postprocedural states; Z79.891 Long term (current) use of opiate analgesic; Z79.899 Other long term (current) drug therapy; Z88.1 Allergy status to other antibiotic agents
CPT/HCPCS: G0378; G0379; J1650; J2405; J7030

== ENCOUNTER → 2016-12-28 | Day surgery (SDC) | payer OTHER ==
[~2016-12-28] VITALS: Ht 172.7 cm; Wt 141.1 kg
[~2016-12-28] MED LIST changes: +ADVIL200 MG PO; +BACTRIM DS1 TAB PO; +DICLOFENAC SOD100 G1 TOP; +FEOSOL325 MG PO; +LIORESAL10 MG PO; +NYSTATIN100000 UNI PO; +PERCOCET 5-3251 EACH PO; +PRILOSEC20 MG PO; +TUMS REGULAR ST1 TAB PO; +ZANAFLEX4 MG PO
== END | disposition disaster alternative care site (69) ==
LOC: GPOC 12-24 13:00 → GEND 08:29
PROC: 0DB38ZX Excision of Lower Esophagus, Via Natural or Artificial Opening Endoscopic, Diagnostic (ICD-10-PCS; principal; 2016-12-28)
PROC: 0DB68ZX Excision of Stomach, Via Natural or Artificial Opening Endoscopic, Diagnostic (ICD-10-PCS; 2016-12-28)
PROC: 0DBH8ZX Excision of Cecum, Via Natural or Artificial Opening Endoscopic, Diagnostic (ICD-10-PCS; 2016-12-28)
PROC: 0DBP8ZX Excision of Rectum, Via Natural or Artificial Opening Endoscopic, Diagnostic (ICD-10-PCS; 2016-12-28)
PROC: 0DBB8ZX Excision of Ileum, Via Natural or Artificial Opening Endoscopic, Diagnostic (ICD-10-PCS; 2016-12-28)
DX: K44.9 Diaphragmatic hernia without obstruction or gangrene (principal); K52.9 Noninfective gastroenteritis and colitis, unspecified; R10.9 Unspecified abdominal pain; K21.9 Gastro-esophageal reflux disease without esophagitis; F32.9 Major depressive disorder, single episode, unspecified; Z90.49 Acquired absence of other specified parts of digestive tract; Z88.1 Allergy status to other antibiotic agents; Z79.899 Other long term (current) drug therapy; Z98.890 Other specified postprocedural states
CPT/HCPCS: J2001; J7030

== ENCOUNTER 2017-01-31 23:47 | Emergency (ER) | payer OTHER ==
--- NOTE | ~2017-01-31 | ER ---
PATIENT'S NAME: MELODY EAGLE [facility] AGE: 21 Y [address] ROOM: [place] [address] LOCATION: [facility] ADMIT DATE: 01/31/2017 ER/Outpatient Report DISCHARGE DATE: FAMILY PHYSICIAN: Rommel Ng MD ATTENDING PHYSICIAN: Vik Osman Time of Arrival: 2347 hours. Time of Evaluation: 2350 hours. CHIEF COMPLAINT: Nausea, vomiting, and back pain. HISTORY OF PRESENT ILLNESS: The patient is a 21-year-old female, who presents to the emergency department today with chief complaint of nausea, vomiting, and back pain. She reports she underwent epidural injection this morning by Dr. Valente for chronic back pain that she has. She reports that she developed some nausea and vomiting tonight. She has vomited 6 times in the past 24 hours. The patient does have a long history of stomach related issues. Her pain is currently moderate in severity. She also has some midepigastric pain, reports she just had an endoscopy which showed an ulceration. She does report some small streaks of blood. There is no gross blood otherwise. She does report a low-grade fever of 101.2. She did take some Tylenol for this. She denies any urinary frequency, urgency, or painful urination. PAST MEDICAL HISTORY: C. diff colitis, chronic back pain, anxiety, depression, stomach ulcers. PAST SURGICAL HISTORY: L5-S1 diskectomy with fusion done by Dr. Winkler, right ankle surgery, gastric sleeve, cholecystectomy, tonsillectomy, and adenoidectomy. SOCIAL HISTORY: The patient denies any tobacco, alcohol, or illicit drug use. ALLERGIES: TO ROCEPHIN. MEDICATIONS: Please see list. PRIMARY CARE DOCTOR: Dr. Ng. REVIEW OF SYSTEMS: PATIENT'S NAME: MELODY EAGLE [facility] AGE: 21 Y [address] ROOM: [place] [address] LOCATION: ED ADMIT DATE: 01/31/2017 ER/Outpatient Report DISCHARGE DATE: FAMILY PHYSICIAN: Rommel Ng MD ATTENDING PHYSICIAN: Vik Osman All systems are reviewed by myself and are negative with the exception of those discussed in HPI and past medical history. PHYSICAL EXAMINATION: VITAL SIGNS: Weight 141.6 kg. Blood pressure is 175/103, pulse 103, respiratory rate 16, temperature 99.8, oxygen saturation 97% on room air. GENERAL: The patient is a 21-year-old female who appears stated age, in no acute distress. She is obese. HEENT: Head is normocephalic, atraumatic. Pupils are equal, round, and reactive to light. NECK: Supple. There is no nuchal rigidity. CARDIOVASCULAR: Tachycardic. No murmurs, rubs, or gallops. LUNGS: Clear to auscultation bilaterally. No wheezes, rales, or rhonchi. ABDOMEN: Soft, nontender, and nondistended. No rebound, rigidity, or guarding. Positive bowel sounds. MUSCULOSKELETAL: The patient moves all 4 extremities. SKIN: Warm and dry. The area of the epidural injection is clean, dry, and intact. There is bandage. There is no masses palpated over this area in the upper thoracic region. LABORATORY DATA AND X-RAYS: CBC: White blood cell count 11.8, platelets 504, otherwise unremarkable. Lactate is 3.2, procalcitonin 0.25. Urine hCG is negative. Urinalysis is unremarkable. CMP is unremarkable. LFTs normal. Lipase is normal. CRP is 1.27. ESR is normal at 16. IMPRESSION: 1. Nausea and vomiting. 2. Thoracic back pain. 3. Initial visit. EMERGENCY DEPARTMENT COURSE: The patient was brought back to the examination room. Seen and evaluated by myself. IV is established. Laboratory analysis and imaging are obtained as described above. The patient is given a liter of normal saline. She is given 5 mg of morphine IV as well as 4 mg of Zofran IV. The results are obtained, I have discussed results with the patient and her mother who is at the bedside. The patient is reexamined, she continues to have nonsurgical abdominal exam at this time and actually has no tenderness to palpation upon exam. Her ESR is within normal limits. CRP is slightly elevated. I have discussed with her the concern obviously with epidural and fever, however, the epidural was performed just a few hours ago. I have discussed with her that I have strongly recommended that she follows up with Dr. Ng tomorrow for re- evaluation of both her abdomen pain or fever and her back pain. I have noted that her blood pressure is elevated and I have asked she follows up with Dr. PATIENT'S NAME: MELODY EAGLE [facility] AGE: 21 Y [address] ROOM: [place], [place] [address] LOCATION: [facility] ADMIT DATE: 01/31/2017 ER/Outpatient Report DISCHARGE DATE: FAMILY PHYSICIAN: Rommel Ng MD ATTENDING PHYSICIAN: Vik Osman about this as well. She reports she is out of Zofran at home, I have written a prescription for Zofran. Her heart rate has improved down to rechecked at 83. I have discussed return to care instructions including worsening pain, worsening fevers, or any other concerns that she may have she is to return to the emergency department as soon as possible. The patient is agreeable and she is without further questions at this time. DISPOSITION: The patient is discharged to home with a strong recommendations to follow up with Dr. Ng tomorrow. DO ANDREW PLATA/modl /[id number] d: 02/01/17 0231 t: 02/01/17 2306, OUTPATIENT REPORT
[2017-02-01 00:21] LABS: BASOPHIL % 0.1 %; HEMOGLOBIN 12.3 g/dL (11.0-15.0); IMMATURE GRANULOCYTE % 0.3 %; LYMPHOCYTE # 1.5 K/uL (0.8-4.0); LYMPHOCYTE % 12.8 %; MCH 21.6 pg (27.0-34.0); MCHC 30.8 gm/dL (32.0-36.5); MCV 70.3 fl (83.0-98.0); MONOCYTE # 0.4 K/uL (0.0-1.0); MONOCYTE % 3.5 %; MPV 9.3 fl (9.4-12.4); NEUTROPHIL # (ANC) 9.9 K/uL (1.8-7.8); NEUTROPHIL % 83.3 %; NRBC % 0 /100WBC (0-0.00); RBC 5.69 M/uL (3.50-5.00); RDW-CV 15.6 % (11.9-14.6); WBC 11.8 K/uL (4.0-11.0)
[2017-02-01 00:22] LABS: PLATELET COUNT 504 K/uL (150-450)
[2017-02-01 00:30] LABS: INR - (THERAPEUTIC) 0.92 (0.92-1.07); PROTIME 9.6 SECONDS (9.8-11.4); PTT 27 SECONDS (25-32)
[2017-02-01 00:38] LABS: ALBUMIN 3.7 gm/dL (3.5-5.0); ALK PHOS 82 IU/L (33-138); ALT 24 IU/L (12-78); ANION GAP 13.2 (10.0-19.0); AST 13 IU/L (10-40); BLOOD UREA NITROGEN 9 mg/dL (6-24); CALCIUM 8.9 mg/dL (8.5-10.5); CHLORIDE 107 mMol/L (96-110); CO2 22 mMol/L (22-32); CREATININE 0.7 mg/dL (0.5-1.1); POTASSIUM 4.2 mMol/L (3.7-5.1); SODIUM 138 mMol/L (135-145); TOTAL BILIRUBIN 0.4 mg/dL (0.0-1.5); TOTAL PROTEIN 7.7 g/dL (6.0-8.4)
[2017-02-01 00:52] LABS: BILIRUBIN URINE NEGATIVE (NEGATIVE); BLOOD URINE NEGATIVE /UL (NEGATIVE); COLOR URINE YELLOW (YELLOW); GLUCOSE URINE NEGATIVE (NEGATIVE); KETONE URINE NEGATIVE (NEGATIVE); LEUKOCYTES URINE NEGATIVE /UL (NEGATIVE); NITRITE URINE NEGATIVE (NEGATIVE); PROTEIN URINE 30 mg/dL (NEGATIVE); SPEC GRAVITY URINE 1.005 (1.003-1.035); TURBIDITY URINE CLEAR (CLEAR); UROBILINOGEN URINE NORMAL (NORMAL)
[2017-02-01 00:58] LABS: BACTERIA URINE NEGATIVE (NEGATIVE); RBC URINE RARE #/HPF (NEGATIVE); WBC URINE RARE #/HPF (NEGATIVE)
== END 2017-02-01 02:32 | disposition disaster alternative care site (69) ==
LOC: GMED 23:47
PROVIDERS: Emergency Medicine
DX: R11.2 Nausea with vomiting, unspecified (principal); M54.6 Pain in thoracic spine; F41.9 Anxiety disorder, unspecified; F32.9 Major depressive disorder, single episode, unspecified; Z90.49 Acquired absence of other specified parts of digestive tract; Z90.89 Acquired absence of other organs; Z88.1 Allergy status to other antibiotic agents; Z98.1 Arthrodesis status; Z98.84 Bariatric surgery status; Z79.899 Other long term (current) drug therapy
CPT/HCPCS: J2270; J2405; J7030